=== PATIENT | male | born 1955 | race Caucasian/White ===

== ENCOUNTER 2017-12-21 09:22 | Emergency (ER) | payer MEDICARE, OTHER ==
[~2017-12-21] VITALS: Ht 177.8 cm; Wt 69.2 kg
[2017-12-21] MEDS ORDERED: TETanus/Pertussis (Acell)/Diphther VAC/PF (Tdap-Adult) 0.5ml syringe IM ONE (11:15)
[2017-12-21] MEDS ORDERED: CEPH500C5 PO (11:17)
[2017-12-21 11:34] VITALS: BP 145/98
== END 2017-12-21 11:36 | disposition home or self-care (01) ==
LOC: ER 09:22
DX: T24.202A Burn of second degree of unspecified site of left lower limb, except ankle and foot, initial encounter (principal); T22.20XA Burn of second degree of shoulder and upper limb, except wrist and hand, unspecified site, initial encounter; X08.8XXA Exposure to other specified smoke, fire and flames, initial encounter; Y93.89 Activity, other specified; Y92.89 Other specified places as the place of occurrence of the external cause; Y99.9 Unspecified external cause status
CPT/HCPCS: 90471; 90715; 99283

== ENCOUNTER 2019-02-08 09:01 | Emergency (ER) | payer BC, MEDICARE ==
[~2019-02-08] VITALS: Ht 175.3 cm; Wt 68.0 kg
[2019-02-08] MEDS ORDERED: ketorolac trometh inj. 60 MG/2 ML VIAL IM ONE (10:10)
[2019-02-08] MEDS ORDERED: ketorolac tromethamine 15mg/ml inj. IV ONE (10:20)
--- NOTE | 2019-02-08 10:22 | NUR ---
PT TO XRAY
--- NOTE | 2019-02-08 10:36 | NUR ---
PT TO CT
[2019-02-08] MEDS ORDERED: DICL50TA8 PO (10:59)
[2019-02-08] MEDS ORDERED: CYCL-1 PO (10:59)
[2019-02-08 11:16] VITALS: BP 155/101
== END 2019-02-08 11:18 | disposition home or self-care (01) ==
LOC: ER 09:01
DX: S33.5XXA Sprain of ligaments of lumbar spine, initial encounter (principal); R51 Headache; W17.89XA Other fall from one level to another, initial encounter; Y93.39 Activity, other involving climbing, rappelling and jumping off; Y92.098 Other place in other non-institutional residence as the place of occurrence of the external cause; Y99.8 Other external cause status
CPT/HCPCS: 70450; 72100; 96374; 99284; J1885

== ENCOUNTER 2019-02-26 17:07 | Emergency (ER) | payer BC, MEDICARE ==
[~2019-02-26] VITALS: Ht 175.3 cm; Wt 78.0 kg
[~2019-02-26 17:07] MED LIST: CYCL-1 PO; DICL50TA8 PO
[2019-02-26] MEDS ORDERED: ibuprofen 100 MG/5 ML oral susp PO ONE (18:45)
[2019-02-26] MEDS ORDERED: LIDOcaine 1% w/EPI 1:200,000 injection 10mL vial IM ONE (19:05)
[2019-02-26] MEDS ORDERED: LIDOcaine 1% W/epiNEPHrine 1:200,000 10ml vial IJ ONE (19:10)
[2019-02-26 20:40] VITALS: BP 118/89
== END 2019-02-26 20:42 | disposition home or self-care (01) ==
LOC: ER 17:08
DX: S01.81XA Laceration without foreign body of other part of head, initial encounter (principal); S90.511A Abrasion, right ankle, initial encounter; F10.920 Alcohol use, unspecified with intoxication, uncomplicated; W01.198A Fall on same level from slipping, tripping and stumbling with subsequent striking against other object, initial encounter; Y93.89 Activity, other specified; Y92.89 Other specified places as the place of occurrence of the external cause; Y99.9 Unspecified external cause status; Y90.9 Presence of alcohol in blood, level not specified
CPT/HCPCS: 12011; 36415; 70450; 72125; 72131; 80320; 99284